=== PATIENT | female | born 2005 | race Two or more races ===

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

== ENCOUNTER 2024-06-14 06:31 | Emergency (ER) | payer OTHER ==
[2024-06-14 06:39] VITALS: BP 114/79; PULSE 89; RESP 18; TEMP 98.1; BMI 17.7
== END 2024-06-14 07:56 | disposition home or self-care (01) ==
LOC: JER 06:31
DX: L65.9 Nonscarring hair loss, unspecified (principal)
CPT/HCPCS: 99282-25